=== PATIENT | male | born 1990 | race African-American/Black ===

== ENCOUNTER 2016-09-03 17:05 | Observation (INO) | payer SELFPAY ==
[~2016-09-03] VITALS: Ht 188 cm; Wt 92.0 kg
[~2016-09-03 17:05] MED LIST: HYDR-3533 PO
[2016-09-03 17:08] VITALS: BP 150/86; PULSE 95; RESP 36; O2SAT 99
[2016-09-03 17:13] VITALS: TEMP 98
--- NOTE | 2016-09-03 17:15 | PD ---
Physical Exam Date Seen by Provider: Sep 03, 2016 Time Seen by Provider: 17:12 Data Data Last Documented VS Vital Signs Date Time Temp Pulse Resp B/P Pulse Ox O2 Delivery O2 Flow Rate FiO2 09/03/16 17:08 95 36 150/86 99 Room Air MDM Supervised Visit with VICKI: No Narrative Course 26 YO M with complaint of 2 hour history of nausea, vomiting and abdominal pain. Vitals reviewed. Awaiting bed placement. Sara Wisdom Sep 03, 2016 17:15
[2016-09-03] MEDS ORDERED: SODIUM CHLOR 0.9% 1000 ML INJ 1,000 ML IV SCH (17:27)
[2016-09-03] MEDS ORDERED: FAMOTIDINE 20 MG/2 ML VIAL IV PUSH ONE (17:30)
[2016-09-03] MEDS ORDERED: ONDANSETRON HCL 4 MG/2 ML VIAL IVP ONE (17:30)
[2016-09-03] MEDS ORDERED: SODIUM CHLORIDE 0.9% FLUSH 10 ML FLUSH IV FLUSH PRN ×2 (17:30→21:45)
[2016-09-03 17:41] VITALS: O2SAT 100
[2016-09-03 18:28] LABS: AUTOMATED NEUTROPHIL # 10.9 TH/MM3 (1.8-7.7); BASOPHIL % 0.3 % (0.0-2.0); EOSINOPHIL % 0.2 % (0.0-4.0); HEMATOCRIT 45.7 % (39.0-51.0); HEMO FLAGS DIFF FINAL; LYMPHOCYTE # 1.2 TH/MM3 (1.0-4.8); MEAN CORPUSCULAR HEMOGLOBIN 32.7 PG (27.0-34.0); MEAN CORPUSCULAR HGB CONC 33.4 % (32.0-36.0); MONO % 6.1 % (0.0-8.0); NEUT % 84.4 % (16.0-70.0); PLATELET COUNT 216 TH/MM3 (150-450); RED BLOOD COUNT 4.66 MIL/MM3 (4.50-5.90); RED CELL DISTRIBUTION WIDTH 12.1 % (11.6-17.2); WHITE BLOOD COUNT 12.9 TH/MM3 (4.0-11.0)
[2016-09-03 18:42] LABS: TOTAL BILIRUBIN ADULT 0.6 MG/DL (0.2-1.0)
[2016-09-03] MEDS ORDERED: METOCLOPRAMIDE INJ 10 MG in SODIUM CHLORIDE 0.9% INJ 50 ML IV ONE (18:45)
[2016-09-03 18:47] VITALS: BP 165/99; PULSE 92; RESP 20; O2SAT 100
--- NOTE | 2016-09-03 18:53 | PD ---
HPI Chief Complaint: Abdominal Pain Time Seen by Provider: 17:23 Travel History International Travel<30 days: No Contact w/Intl Traveler<30days: No Traveled to known affect area: No History of Present Illness HPI Patient is a 26 year old male who comes in complaining of nausea, vomiting, and diarrhea for the past few hours. He says it started after eating at [employer] this afternoon. He says he has pain to his upper abdomen. He denies fever or chills. He was feeling well prior to eating a [employer]. [facility] Past Medical History Asthma: Yes Diminished Hearing: No Immunizations Current: Yes Social History Alcohol Use: No Tobacco Use: Yes Substance Use: No Allergies-Medications (Allergen,Severity, Reaction): Coded Allergies: No Known Allergies (Unverified , 09/03/16) Reported Meds & Prescriptions Reported Meds & Active Scripts Active No Active Prescriptions or Reported Medications Review of Systems Except as stated in HPI: all other systems reviewed are Neg General / Constitutional: No: Fever, Chills HENT: No: Headaches, Lightheadedness Cardiovascular: No: Chest Pain or Discomfort Respiratory: No: Shortness of Breath Gastrointestinal: Positive: Nausea, Vomiting, Diarrhea, Abdominal Pain Genitourinary: No: Dysuria Musculoskeletal: No: Myalgias Skin: No Rash, No Change in Pigmentation Neurologic: No: Weakness, Dizziness Physical Exam Narrative GENERAL: Awake and alert, in no acute distress. SKIN: Focused skin assessment warm/dry. HEAD: Atraumatic. Normocephalic. EYES: Pupils equal and round. No scleral icterus. ENT: Mucous membranes pink and moist. NECK: Trachea midline. No JVD. CARDIOVASCULAR: Regular rate and rhythm. No murmur appreciated. RESPIRATORY: No accessory muscle use. Clear to auscultation. Breath sounds equal bilaterally. GASTROINTESTINAL: Abdomen soft, nondistended. Mild tenderness to the midepigastric area. No rebound or guarding. MUSCULOSKELETAL: No obvious deformities. No clubbing. No cyanosis. No edema. NEUROLOGICAL: Awake and alert. No obvious cranial nerve deficits. Motor grossly within normal limits. Normal speech. PSYCHIATRIC: Appropriate mood and affect; insight and judgment normal. Data Data Last Documented VS Vital Signs Date Time Temp Pulse Resp B/P Pulse Ox O2 Delivery O2 Flow Rate FiO2 09/03/16 18:47 92 20 165/99 100 Room Air 09/03/16 17:13 98.0 Orders Basic Metabolic Panel (Bmp) (09/03/16 17:27) Complete Blood Count With Diff (09/03/16 17:27) Lipase (09/03/16 17:27) Iv Access Insert/Monitor (09/03/16 17:27) Ecg Monitoring (09/03/16 17:27) Oximetry (09/03/16 17:27) Ondansetron Inj (Zofran Inj) (09/03/16 17:30) Sodium Chlor 0.9% 1000 Ml Inj (Ns 1000 M (09/03/16 17:27) Sodium Chloride 0.9% Flush (Ns Flush) (09/03/16 17:30) Famotidine Inj (Pepcid Inj) (09/03/16 17:30) Hepatic Functional Panel (09/03/16 17:27) Metoclopramide Inj (Reglan Inj) (09/03/16 18:45) Ondansetron Inj (Zofran Inj) (09/03/16 20:15) Prochlorperazine Inj (Compazine Inj) (09/03/16 20:45) Sodium Chlor 0.9% 1000 Ml Inj (Ns 1000 M (09/03/16 21:00) Labs Laboratory Tests Test 09/03/16 09/03/16 17:39 19:04 White Blood Count 12.9 TH/MM3 Red Blood Count 4.66 MIL/MM3 Hemoglobin 15.3 GM/DL Hematocrit 45.7 % Mean Corpuscular Volume 98.0 FL Mean Corpuscular Hemoglobin 32.7 PG Mean Corpuscular Hemoglobin 33.4 % Concent Red Cell Distribution Width 12.1 % Platelet Count 216 TH/MM3 Mean Platelet Volume 9.2 FL Neutrophils (%) (Auto) 84.4 % Lymphocytes (%) (Auto) 9.0 % Monocytes (%) (Auto) 6.1 % Eosinophils (%) (Auto) 0.2 % Basophils (%) (Auto) 0.3 % Neutrophils # (Auto) 10.9 TH/MM3 Lymphocytes # (Auto) 1.2 TH/MM3 Monocytes # (Auto) 0.8 TH/MM3 Eosinophils # (Auto) 0.0 TH/MM3 Basophils # (Auto) 0.0 TH/MM3 CBC Comment DIFF FINAL Differential Comment Sodium Level 139 MEQ/L Potassium Level 3.9 MEQ/L Chloride Level 103 MEQ/L Carbon Dioxide Level 24.2 MEQ/L Anion Gap 12 MEQ/L Blood Urea Nitrogen 8 MG/DL Creatinine 1.16 MG/DL Estimat Glomerular Filtration 92 ML/MIN Rate Random Glucose 72 MG/DL Calcium Level 9.3 MG/DL Total Bilirubin 0.6 MG/DL Direct Bilirubin 0.1 MG/DL Indirect Bilirubin 0.6 MG/DL Aspartate Amino Transf 27 U/L (AST/SGOT) Alanine Aminotransferase 25 U/L (ALT/SGPT) Alkaline Phosphatase 88 U/L Total Protein 8.9 GM/DL Albumin 4.8 GM/DL Lipase 230 U/L [facility] Medical Decision Making Medical Screen Exam Complete: Yes Emergency Medical Condition: Yes Differential Diagnosis Gastroenteritis versus gastritis versus pancreatitis versus cholecystitis Narrative Course Patient is a 26-year-old male comes in complaining of nausea, vomiting, diarrhea. Exam shows tenderness to the midepigastric area. IV established, labs sent. Patient given IV fluids, Zofran, famotidine. Patient continued to have vomiting, was given a dose of Reglan. Labs show WBC count of 12.9, no other abnormalities. Patient continued to have vomiting, given second dose of Zofran. Patient continued to vomit, given Compazine. He is still nauseous and unable to tolerate PO. Will be placed in observation. Diagnosis Primary Impression: Intractable vomiting Qualified Code: R11.2 - Intractable vomiting with nausea, unspecified vomiting type Admitting Information Admitting Physician Requests: Observation Scripts No Active Prescriptions or Reported Meds Condition: Stable Nevaeh Hernandez MD Sep 03, 2016 18:53
[2016-09-03 19:56] LABS: BICARBONATE 24.2 MEQ/L (21.0-32.0); INDIRECT BILIRUBIN 0.6 MG/DL (0.0-0.8)
[2016-09-03 19:57] LABS: POTASSIUM 3.9 MEQ/L (3.5-5.1)
[2016-09-03] MEDS ORDERED: ONDANSETRON HCL 4 MG/2 ML VIAL IV PUSH ONE (20:15)
[2016-09-03] MEDS ORDERED: PROCHLORPERAZINE INJ 10 MG/2 ML VIAL IV PUSH ONE (20:45)
[2016-09-03] MEDS ORDERED: SODIUM CHLOR 0.9% 1000 ML INJ 1,000 ML IV ONE (21:00)
[2016-09-03] MEDS ORDERED: diphenhydrAMINE HCL 50 MG/ML VIAL IV PUSH ONE (21:30)
[2016-09-03] MEDS ORDERED: MORPHINE SULFATE 4 MG/ML INJ IV PRN (21:45)
[2016-09-03] MEDS ORDERED: LORazepam 2 MG/ML VIAL IV PUSH PRN (21:45)
[2016-09-03] MEDS ORDERED: SENNOSIDES 8.6 MG TAB PO PRN (21:45)
[2016-09-03] MEDS ORDERED: PROCHLORPERAZINE INJ 10 MG/2 ML VIAL IV PUSH PRN (21:45)
[2016-09-03] MEDS ORDERED: MAGNESIUM HYDROXIDE SUSP 30 ML CUP PO PRN (21:45)
[2016-09-03] MEDS ORDERED: ACETAMINOPHEN/HYDROcodone 325 MG/5 MG TAB PO PRN (21:45)
[2016-09-03] MEDS ORDERED: ONDANSETRON HCL 4 MG/2 ML VIAL IVP PRN (21:45)
[2016-09-03] MEDS ORDERED: LACTULOSE SYRUP 20 GM/30 ML CUP PO PRN (21:45)
[2016-09-03] MEDS ORDERED: BISACODYL 10 MG SUPP RECTAL PRN (21:45)
[2016-09-03] MEDS ORDERED: ACETAMINOPHEN 325 MG TAB PO PRN (21:45)
--- NOTE | 2016-09-03 21:50 | HHI.HP ---
HPI Service [facility] Primary Care Physician No Primary Care Physician Admission Diagnosis intractable vomiting Diagnoses: (1) Intractable nausea and vomiting Diagnosis: Principal (2) Leukocytosis Diagnosis: Principal (3) Tobacco abuse Diagnosis: Principal (4) HTN (hypertension) Diagnosis: Principal Travel History International Travel<30 Days: No Contact w/Intl Traveler <30 Da: No Traveled to Known Affected Are: No History of Present Illness This is a 26-year-old male with a PMH of Asthma who presented to the ER with complaints of nausea, vomiting and diarrhea starting earlier this afternoon. Per patient he had eaten at the [employer] and few hours later began to develop abrupt onset of nausea and vomiting followed by diarrhea. Denies fever or chills. No sick contacts. On arrival, BP 150/86, HR 95, O2 sat 99% on RA, Afebrile. WBC 12.9. Chemistry essentially unremarkable except for glucose 72. S/p multiple doses of antiemetics in ER w/ minimal relief, still w/ persistent nausea/vomiting. No complaints of abdominal pain. Review of Systems Except as stated in HPI: all other systems reviewed are Neg ROS: 14 point review of systems otherwise negative. Past Family Social History Past Medical History PMH: Asthma Past Surgical History PAST SURGICAL HISTORY: None Allergies: Coded Allergies: No Known Allergies (Unverified , 09/03/16) Family History PAST FAMILY HISTORY: Reviewed. No h/o DM or CAD Social History PAST SOCIAL HISTORY: Negative for alcohol or drugs. Positive for tobacco. Physical Exam Vital Signs Vital Signs Date Time Temp Pulse Resp B/P Pulse Ox O2 Delivery O2 Flow Rate FiO2 09/03/16 18:47 92 20 165/99 100 Room Air 09/03/16 17:41 100 Room Air 09/03/16 17:13 98.0 09/03/16 17:08 95 36 150/86 99 Room Air Physical Exam PE: GENERAL: Young male in no acute distress. HEENT: PERRLA, EOMI. No scleral icterus or conjunctival pallor. No lid lag or facial droop. CARDIOVASCULAR: Regular rate and rhythm. No obvious murmurs to auscultation. No chest tenderness to palpation. RESPIRATORY: No obvious rhonchi or wheezing. Clear to auscultation. Breath sounds equal bilaterally. GASTROINTESTINAL: Abdomen soft, non-tender, nondistended. BS normal. MUSCULOSKELETAL: Extremities without clubbing, cyanosis, or edema. No obvious deformities. NEUROLOGICAL: Awake, alert and oriented x4. No focal neurologic deficits. Moving both upper and lower extremities spontaneously. Laboratory Laboratory Tests Test 09/03/16 09/03/16 17:39 19:04 White Blood Count 12.9 Red Blood Count 4.66 Hemoglobin 15.3 Hematocrit 45.7 Mean Corpuscular Volume 98.0 Mean Corpuscular Hemoglobin 32.7 Mean Corpuscular Hemoglobin 33.4 Concent Red Cell Distribution Width 12.1 Platelet Count 216 Mean Platelet Volume 9.2 Neutrophils (%) (Auto) 84.4 Lymphocytes (%) (Auto) 9.0 Monocytes (%) (Auto) 6.1 Eosinophils (%) (Auto) 0.2 Basophils (%) (Auto) 0.3 Neutrophils # (Auto) 10.9 Lymphocytes # (Auto) 1.2 Monocytes # (Auto) 0.8 Eosinophils # (Auto) 0.0 Basophils # (Auto) 0.0 CBC Comment DIFF FINAL Differential Comment Sodium Level 139 Potassium Level 3.9 Chloride Level 103 Carbon Dioxide Level 24.2 Anion Gap 12 Blood Urea Nitrogen 8 Creatinine 1.16 Estimat Glomerular Filtration 92 Rate Random Glucose 72 Calcium Level 9.3 Total Bilirubin 0.6 Direct Bilirubin 0.1 Indirect Bilirubin 0.6 Aspartate Amino Transf 27 (AST/SGOT) Alanine Aminotransferase 25 (ALT/SGPT) Alkaline Phosphatase 88 Total Protein 8.9 Albumin 4.8 Lipase 230 Result Diagram: 09/03/16 1739 09/03/16 [id number] Assessment and Plan Problem List: (1) Intractable nausea and vomiting ICD Code: R11.2 Status: Acute (2) Leukocytosis ICD Code: D72.829 Status: Acute (3) HTN (hypertension) ICD Code: I10 Status: Acute (4) Tobacco abuse ICD Code: Z72.0 Status: Acute Assessment and Plan A/P: 1. Intractable Nausea/Vomiting: acute onset of nausea/vomiting w/ few episodes of diarrhea following meal at the [employer]. No sick contacts. Multiple doses of antiemetics in ER w/ minimal relief, persistent nausea/ vomiting, no abdominal pain. Admit for Observation as unable to take PO. IVF for hydration, diet as tolerated, Zofran/Compazine/Ativan prn. 2. Leukocytosis: WBC 12.9, Afebrile. Will monitor. Repeat labs in am. 3. HTN: No h/o HTN. BP 150-160's, likely secondary to ongoing nausea/vomiting , optimize antiemetics before attempting antihypertensives. 4. Tobacco Abuse: Pt counselled. Ativan/NicoDerm prn if needed. 5. DVT Prophylaxis: SCD/Teds. 6. Social work for d/c planning as needed. 7. Case discussed w/ ER physician at length. Paradise Palma MD Sep 03, 2016 21:50
[2016-09-03 22:06] VITALS: BP 159/111; PULSE 109; RESP 23; O2SAT 100
[2016-09-03 23:57] VITALS: BP 169/91; PULSE 96; RESP 18; TEMP 98.9; O2SAT 100
[2016-09-04] MEDS: SODIUM CHLOR 0.9% 1000 ML INJ 1,000 ML IV SCH ×2 (00:07→08:14)
[2016-09-04 03:58] VITALS: BP 142/66; PULSE 78; RESP 18; TEMP 98.2; O2SAT 100
[2016-09-04 07:36] LABS: BLOOD, URINE NEG (NEG); GLUCOSE,URINE NEG (NEG); KETONE, URINE 80 mg/dL (NEG); NITRITE,URINE NEG (NEG); PH, URINE 5.5 (5.0-8.5); URINE COLOR YELLOW (YELLW/STRAW)
[2016-09-04 07:41] LABS: BACTERIA, URINE RARE /hpf; MUCUS URINE OCC /lpf (OCC); WBC, URINE 0-2 /hpf (0-5)
[2016-09-04 07:42] LABS: CULTURE IF INDICATED CULT NOT INDICATED
[2016-09-04 07:45] VITALS: BP 156/63; PULSE 85; RESP 20; TEMP 98.7; O2SAT 98
[2016-09-04] MEDS ORDERED: DOCUSATE SODIUM 50 MG/SENNA 8.6 MG TAB PO SCH (09:00)
[2016-09-04] MEDS ORDERED: SODIUM CHLORIDE 0.9% FLUSH 10 ML FLUSH IV FLUSH SCH (09:00)
[2016-09-04 09:51] LABS: AUTOMATED NEUTROPHIL # 8.7 TH/MM3 (1.8-7.7); BASOPHIL % 0.2 % (0.0-2.0); HEMATOCRIT 45.2 % (39.0-51.0); HEMO FLAGS DIFF FINAL; LYMPH % 8.3 % (9.0-44.0); LYMPHOCYTE # 0.9 TH/MM3 (1.0-4.8); MEAN CELL VOLUME 97.5 FL (80.0-100.0); MEAN CORPUSCULAR HEMOGLOBIN 32.6 PG (27.0-34.0); MEAN CORPUSCULAR HGB CONC 33.4 % (32.0-36.0); NEUT % 83.5 % (16.0-70.0); PLATELET COUNT 203 TH/MM3 (150-450); RED BLOOD COUNT 4.63 MIL/MM3 (4.50-5.90); RED CELL DISTRIBUTION WIDTH 12.2 % (11.6-17.2); WHITE BLOOD COUNT 10.4 TH/MM3 (4.0-11.0)
[2016-09-04 10:34] LABS: ALKALINE PHOSPHATASE 92 U/L (45-117); ALT (GPT) 22 U/L (12-78); ANION GAP 12 MEQ/L (5-15); AST (GOT) 15 U/L (15-37); BICARBONATE 24.1 MEQ/L (21.0-32.0); BLOOD UREA NITROGEN 6 MG/DL (7-18); CHLORIDE 105 MEQ/L (98-107); GLOMERULAR FILTRATION RATE 103 ML/MIN (>89); SODIUM (NA) 141 MEQ/L (136-145); TOTAL BILIRUBIN ADULT 0.7 MG/DL (0.2-1.0)
--- NOTE | 2016-09-04 10:39 | HHI.DS ---
Discharge Summary Admission Date Sep 03, 2016 at 21:45 Discharge Date: Sep 04, 2016 Admitting Diagnosis intractable vomiting (1) Intractable nausea and vomiting ICD Code: R11.2 Diagnosis: Principal (2) Leukocytosis ICD Code: D72.829 Diagnosis: Principal (3) HTN (hypertension) ICD Code: I10 Diagnosis: Secondary (4) Tobacco abuse ICD Code: Z72.0 Diagnosis: Secondary Procedures none Brief History - From Admission This is a 26-year-old male with a PMH of Asthma who presented to the ER with complaints of nausea, vomiting and diarrhea starting earlier this afternoon. Per patient he had eaten at the [email or web address] [facility] and few hours later began to develop abrupt onset of nausea and vomiting followed by diarrhea. Denies fever or chills. No sick contacts. On arrival, BP 150/86, HR 95, O2 sat 99% on RA, Afebrile. WBC 12.9. Chemistry essentially unremarkable except for glucose 72. S/p multiple doses of antiemetics in ER w/ minimal relief, still w/ persistent nausea/vomiting. No complaints of abdominal pain. CBC/BMP: 09/04/16 0807 09/04/16 0807 Significant Findings Laboratory Tests Test 09/03/16 09/03/16 09/04/16 09/04/16 17:39 19:04 06:55 08:07 White Blood Count 12.9 TH/MM3 (4.0-11.0) Neutrophils (%) (Auto) 84.4 % 83.5 % (16.0-70.0) (16.0-70.0) Neutrophils # (Auto) 10.9 TH/MM3 8.7 TH/MM3 (1.8-7.7) (1.8-7.7) Random Glucose 72 MG/DL (74-106) Total Protein 8.9 GM/DL (6.4-8.2) Urine Ketones 80 mg/dL (NEG) Urine Bacteria RARE /hpf (NONE) Lymphocytes (%) (Auto) 8.3 % (9.0-44.0) Lymphocytes # (Auto) 0.9 TH/MM3 (1.0-4.8) Potassium Level 3.0 MEQ/L (3.5-5.1) Blood Urea Nitrogen 6 MG/DL (7-18) PE at Discharge GENERAL: NAD, A&Ox3 SKIN: Warm and dry. HEAD: Normocephalic. EYES: No scleral icterus. No injection or drainage. NECK: Supple, trachea midline. No JVD or lymphadenopathy. CARDIOVASCULAR: Regular rate and rhythm without murmurs, gallops, or rubs. RESPIRATORY: Breath sounds equal bilaterally. No accessory muscle use. GASTROINTESTINAL: Abdomen soft, non-tender, nondistended. MUSCULOSKELETAL: No cyanosis, or edema. Hospital Course Mr. Lux is a 26-year-old male who was admitted for hyperemesis and leukocytosis. His leukocytosis has resolved. Etiology for her hyperemesis is likely more toxic than a bacterial infection. He has no fevers. Morning he feels back to baseline and actually says that he feels quite well. No further evidence of dehydration. No nausea no vomiting. He is medically stable for discharge to home today. No need for antibiotics. Pt Condition on Discharge: Stable Discharge Disposition: Discharge Home Discharge Time: <= 30 minutes Discharge Instructions DIET: Follow Instructions for: As Tolerated, No Restrictions Activities you can perform: Regular-No Restrictions Follow up Referrals: PCP Follow-up - 2 Weeks Medication Profile: No Active Prescriptions or Reported Meds Bentley Arroyo MD Sep 04, 2016 10:39
== END 2016-09-04 11:15 | disposition home or self-care (01) ==
LOC: NEPD 17:05 → NEDA 21:45 → NEPGCP 23:45
PROVIDERS: ADMIT Hospitalist; ATTEND Hospitalist
DX: R11.2 Nausea with vomiting, unspecified (principal); R19.7 Diarrhea, unspecified; D72.829 Elevated white blood cell count, unspecified; I10 Essential (primary) hypertension; J45.909 Unspecified asthma, uncomplicated; F17.200 Nicotine dependence, unspecified, uncomplicated
CPT/HCPCS: 80048; 80053; 80076; 81001; 83690; 85025; 96361; 96365; 96374; 96375; 96376; 99285; G0378; J0780; J1200; J2405; J2765; J7030